=== PATIENT | male | born 1960 | race Caucasian/White ===

== ENCOUNTER 2016-10-04 10:56 | Day surgery (SDC) | payer OTHER, MEDICARE ==
[~2016-10-04 10:56] MED LIST: Buffered Lidocaine 1% SYRIN* 3 ML/SYR SYRINGE INTRADERM ONE
[2016-10-04] MEDS ORDERED: ceFAZolin 2 GM PREMIX(*) 2 GM/50 ML BAG IVPB ONE (11:01)
[2016-10-04] MEDS ORDERED: ceFAZolin 1 GM in Dextrose (*) 1 GM/50 ML BAG IVPB ONE (11:01)
[2016-10-04] MEDS ORDERED: Insulin REGULAR(*) 1 UNITS UNIT ONE ×2 (11:49→14:09)
[2016-10-04] MEDS ORDERED: Bupivacaine 0.5% SDV PF* 30 ML VIAL ONE (11:58)
[2016-10-04] MEDS ORDERED: fentaNYL* 50 MCG/ML 2 ML VIAL (100 MCG VIAL) ONE (12:39)
[2016-10-04] MEDS ORDERED: Midazolam* 1 MG/ML 5 ML VIAL (5 MG) ONE (12:39)
[2016-10-04] MEDS ORDERED: HYDROcodone/ACETAMIN 5-325 MG* 1 TAB PO PRN (13:14)
[2016-10-04] MEDS ORDERED: fentaNYL* 50 MCG/ML 2 ML VIAL (100 MCG VIAL) IV PRN (13:14)
[2016-10-04] MEDS ORDERED: DiMENhydriNATE IV* 50 MG/ML VIAL IV PUSH PRN (13:14)
[2016-10-04] MEDS ORDERED: Acetaminophen IV 1GM/100ML * 10 MG/ML VIAL IVPB ONE (13:14)
[2016-10-04] MEDS ORDERED: Ondansetron INJ* 2 MG/ML VIAL IV PRN (13:14)
[2016-10-04] MEDS ORDERED: Acetaminophen IV 1GM/100ML * 100 ML ONE (14:11)
[2016-10-04] MEDS ORDERED: oxyCODONE TAB* 5 MG TAB ONE (14:43)
[2016-10-04] MEDS: HYDROmorphone* 1 MG/ML 1 ML SYR IV PRN ×3 (16:51→17:41)
[2016-10-04] MEDS ORDERED: HYDROmorphone* 1 MG/ML 1 ML SYR ONE (16:54)
[2016-10-04 18:01] VITALS: BP 130/83
--- NOTE | 2016-10-04 20:59 | RAD ---
INDICATION: Subtalar fusion with tibial bone graft COMPARISON: Right ankle December 15, 2015 FINDINGS: 9 seconds of fluoroscopy were provided for the orthopedics department. Fluoroscopic spot imaging of the right calcaneus were obtained for operative control and show placement of orthopedic screws for the purposes of subtalar fusion . CPT II Codes: 6045F (fluoro time doc)
--- NOTE | 2016-10-04 23:24 | OP ---
OPERATIVE REPORT: DATE OF SURGERY: 10/04/16 - SDS DATE OF : 58 ATTENDING SURGEON: Milton Barlow MD GRAPHIC ARTS INSTRUCTOR: Agustina Horowitz PA-C. ANESTHESIOLOGIST: Ramo Pyle MD ANESTHESIA: Spinal. PRE-OP DIAGNOSES: Previous calcaneus fracture, subtalar arthrodesis, right foot. POST-OP DIAGNOSES: Previous calcaneus fracture, subtalar arthrodesis, right foot. PRIMARY PROCEDURE: Right subtalar fusion tibial bone graft. DESCRIPTION OF PROCEDURE: The patient was taken to the operating room where a lateral positioning was used with the thigh tourniquet inflated. I made a longitudinal incision along the sinus tarsi area. We incised through the ligament of the sinus tarsi with lamina guide dog instructor to open the joint. The joint was prepared [place] [address] r.p.m. Proximally, at Gerdy's tubercle, we made a 4 cm incision and split the fibers of the iliotibial band. We then harvested cancellous bone from the proximal tibia through a small 1 cm ivette hole. We replaced the cancellous bone with some allograft chips. The periosteum was closed with 2-0 Vicryl and iris for the skin. We then mixed a small amount of powered allograft with the autograft and some DBX bone putty, placing subtalar joint. 7.3 mm cannulated screws were placed from the heel up to the head and neck of the talus area. Good compression and alignment was obtained. We irrigated the lateral wound as well as the heel wound closing with Vicryl iris with lateral wound and 2-0 Surgipro for the heel. A compression dressing plaster splint was applied. [id number]/[facility] #: [id number] [facility]
== END 2016-10-04 18:01 | disposition home or self-care (01) ==
LOC: OR 10:56
PROVIDERS: ATTEND Orthopaedic Surgery
DX: M19.171 Post-traumatic osteoarthritis, right ankle and foot (principal); E11.9 Type 2 diabetes mellitus without complications; J44.9 Chronic obstructive pulmonary disease, unspecified; E03.9 Hypothyroidism, unspecified; N40.0 Benign prostatic hyperplasia without lower urinary tract symptoms; I10 Essential (primary) hypertension; Z79.4 Long term (current) use of insulin; Z79.82 Long term (current) use of aspirin; E66.9 Obesity, unspecified; Z68.42 Body mass index [BMI] 45.0-49.9, adult; G47.33 Obstructive sleep apnea (adult) (pediatric)
CPT/HCPCS: 76000; A9270-GY; C1713; C1776; C9359; J0690; J1170; J2250; J3010

== ENCOUNTER 2019-01-05 07:49 | Day surgery (SDC) | payer OTHER ==
[~2019-01-05 07:49] MED LIST changes: +Acetaminophen TAB* 325 MG PO PRN; -Buffered Lidocaine 1% SYRIN* 3 ML/SYR SYRINGE INTRADERM ONE
[2019-01-05] MEDS ORDERED: Midazolam* 1 MG/ML 5 ML VIAL (5 MG) ONE (08:55)
[2019-01-05] MEDS ORDERED: Lidocaine 1% MPF ** 5 ML VIAL ONE (09:15)
[2019-01-05] MEDS ORDERED: Tetracaine 0.5% OPTH.SOL 4 ML* 1 DROP BTL ONE (09:15)
[2019-01-05] MEDS ORDERED: Tropicamide 1% OPTH.SOL* BTL ONE (09:15)
[2019-01-05] MEDS ORDERED: Phenylephrine OPHTH SOL 2.5%* 2 ML ONE (09:15)
[2019-01-05] MEDS ORDERED: Povidone Iodine 5% OPTH* 30 ML BTL ONE (09:15)
[2019-01-05] MEDS ORDERED: Neomycin/Polymy/Dex OPHTH.OIN* 3.5 GM ONE (09:15)
[2019-01-05] MEDS ORDERED: acetaZOLAMIDE TAB* 250 MG ONE (09:15)
[2019-01-05] MEDS ORDERED: Cyclopentolate 1% OPTH.SOL* 2 ML BTL ONE (09:15)
[2019-01-05] MEDS ORDERED: Ketorolac 0.5% OPHTH (NF) 0.5 % 5 ML BTL ONE (09:15)
[2019-01-05 10:22] VITALS: BP 100/69
--- NOTE | 2019-01-05 21:53 | OP ---
DATE OF OPERATION: 01/05/19 - [facility] DATE OF : 58 SURGEON: Jose Sanabria MD. ANESTHESIA: Monitored anesthesia care. PREOPERATIVE DIAGNOSIS: Cataract, left eye. POSTOPERATIVE DIAGNOSIS: Cataract, left eye. OPERATIVE PROCEDURE: Extracapsular cataract extraction of the left eye with intraocular lens implant. IMPLANT: SN60WF 21.0 diopter lens to the left eye. COMPLICATIONS: None. DESCRIPTION OF PROCEDURE: The patient was given phenylephrine 2.5 % and cyclopentolate 1% eye drops to the operative eye in the preoperative area. The patient was taken to the operating room where a time-out was taken to identify the correct patient, site, and side of surgery. The patient's left eye was prepped and draped in the usual sterile fashion with 5% Betadine. A second time- out was taken to verify the correct patient, side, and site of surgery, as well as the correct lens implant. A lid speculum was placed to the left eye. A 1mm paracentesis blade was used to make a clear corneal incision. Preservative-free 1% lidocaine was injected into the anterior chamber. DisCoVisc was then injected into the anterior chamber. A 2.75 mm keratome blade was used to make a triplanar incision. A cystotome initiated a capsulorrhexis, which was completed with Utrata forceps in a continuous and curvilinear manner. Hydrodissection of the lens was performed with BSS on a cannula. The lens could be spun in a capsular bag. The phacoemulsification handpiece was used with a divide-and- conquer technique to remove the nucleus. The I/A handpiece then removed the residual cortical lens material. DisCoVisc was injected to inflate the capsular bag. The planned SN60WF 21.0 diopter lens was injected into the capsular bag. The residual DisCoVisc was removed from the eye with the I/A handpiece. The corneal incisions were hydrated and no leaks occurred at physiologic pressure around 20 mmHg per palpation. The lid speculum was removed and drapes were removed. Maxitrol ointment was placed to the surface of the operative eye. An adhesive patch and shield was then placed on the operative eye. The patient was taken to the postoperative area in stable condition. [id number]/[facility] #: [id number] [facility]
== END 2019-01-05 10:12 | disposition home or self-care (01) ==
LOC: OREAST 07:49
PROVIDERS: ATTEND Student in an Organized Health Care Education/Training Program
DX: H25.812 Combined forms of age-related cataract, left eye (principal); E11.9 Type 2 diabetes mellitus without complications; Z79.4 Long term (current) use of insulin; Z79.84 Long term (current) use of oral hypoglycemic drugs; I10 Essential (primary) hypertension; J44.9 Chronic obstructive pulmonary disease, unspecified; E78.00 Pure hypercholesterolemia, unspecified
CPT/HCPCS: A9270-GY; J2250; V2632